=== PATIENT | male | born 1950 | race Caucasian/White ===

== ENCOUNTER → 2019-10-19 | Outpatient (CLI) | payer MEDICARE | LOC: COL.RAD | DX: R31.0 Gross hematuria (principal) ==

== ENCOUNTER → 2021-10-09 | Outpatient (CLI) | payer MEDICARE, OTHER | LOC: COL.RAD 12:41 | DX: M24.19 Other articular cartilage disorders, other specified site (principal); M71.21 Synovial cyst of popliteal space [Baker], right knee ==